=== PATIENT | female | born 1985 | race Caucasian/White ===

== ENCOUNTER 2016-07-29 17:42 | Emergency (ER) | payer OTHER ==
[~2016-07-29] VITALS: Ht 165.1 cm; Wt 95.5 kg
[2016-07-29 17:43] VITALS: BP 140/90; PULSE 98; RESP 14; TEMP 98.4; O2SAT 99
[2016-07-29] MEDS ORDERED: IBUP800T23 PO (18:15)
[2016-07-29] MEDS ORDERED: PERI0.126 SWISH-SPIT (18:15)
[2016-07-29] MEDS ORDERED: KETOROLAC TROMETHAMINE 60 MG/2 ML (IM) VIAL IM ONE (18:15)
[2016-07-29] MEDS ORDERED: PENI500T PO (18:15)
--- NOTE | 2016-07-29 18:15 | PD ---
HPI Chief Complaint: Oral / Dental Pain or Problem Time Seen by Provider: 18:12 Travel History International Travel<30 days: No Contact w/Intl Traveler<30days: No Traveled to known affect area: No History of Present Illness HPI 31-year-old female presents to the emergency department for evaluation of right mandibular second molar pain. Patient states that it has been chipped and broken for a long time. It began hurting her approximately 4 days ago. Pain has worsened. She states the, swollen around the base of it. Denies any fever or chills. No new trauma. Pain is a 10 out of 10. Patient has no other symptoms to report. PFSH Past Medical History Anxiety: No Depression: No Diabetes: Yes (GESTATIONAL) Patient Takes Glucophage: No Diminished Hearing: No Hepatitis: Yes (HEP A TREATED 2010) Neurologic: No Psychiatric: No Reproductive: No Immunizations Current: No Tetanus Vaccination: < 5 Years Influenza Vaccination: No ?: Not Menopausal: No Past Surgical History Oral Surgery: Yes (WISDOM TEETH as a child) Tonsillectomy: Yes Other Surgery: Yes Social History Alcohol Use: Yes (OCC) Tobacco Use: No Substance Use: No Allergies-Medications (Allergen,Severity, Reaction): Coded Allergies: Tomato (Verified Allergy, Severe, Anaphylaxis, 05/06/15) Bee Sting (Verified Allergy, Mild, 05/06/15) Uncoded Allergies: THROAT LOZENGE (Adverse Reaction, Severe, VOMITING, 04/28/10) UNKNOWN THROAT LOZENGE S/P TONSILS OUT Reported Meds & Prescriptions Reported Meds & Active Scripts Active Tramadol (Tramadol HCl) 50 Mg Tab 50 Mg PO Q8H PRN Peridex Liq (Chlorhexidine Gluconate (Mouth) Liq) 0.12% Soln 15 Ml SWISH-SPIT BID Ibuprofen 800 Mg Tab 800 Mg PO Q8H PRN Penicillin V Potassium 500 Mg Tab 500 Mg PO Q6H 10 Days Review of Systems Except as stated in HPI: all other systems reviewed are Neg Physical Exam Narrative GENERAL: Well-nourished, well-developed female patient, in no acute distress SKIN: Focused skin assessment warm/dry. HEAD: Normocephalic. Without erythema or edema EYES: No scleral icterus. No injection or drainage. DENTAL: No loose teeth. Right mandibular second molar is decayed to the gingiva with gingival erythema and edema. No appreciable abscess. No malocclusion. NECK: Supple, trachea midline. No JVD or lymphadenopathy. CARDIOVASCULAR: Regular rate and rhythm without murmurs, gallops, or rubs. RESPIRATORY: Breath sounds equal bilaterally. No accessory muscle use. Data Data Last Documented VS Vital Signs Date Time Temp Pulse Resp B/P Pulse Ox O2 Delivery O2 Flow Rate FiO2 07/29/16 17:43 98.4 98 14 140/90 99 Orders Ketorolac Inj (Toradol Inj) (07/29/16 18:15) [facility] Medical Decision Making Medical Screen Exam Complete: Yes Emergency Medical Condition: Yes Medical Record Reviewed: Yes Differential Diagnosis Dental caries versus pulpitis versus gingivitis versus periodontal disease Narrative Course 31-year-old female presents to emergency room for evaluation of dental pain. Patient has a significantly decayed second mandibular molar on the right with gingival erythema and edema. There is no appreciable abscess. Patient was started on oral antibiotics and Peridex oral rinse. She is encouraged to follow -up with a dentist and return immediately with any acute worsening of symptoms. 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 Gingivitis Referrals: Dentist Primary Care Physician Patient Instructions: Dental Caries (DC), General Instructions Additional Instructions: It is important that you follow up with a dentist as soon as possible Follow-up with a primary care provider Return immediately with any acute worsening symptoms Med/Other Pt SpecificInfo: Prescription(s) given Scripts Tramadol 50 Mg Tab50 Mg PO Q8H PRN (PAIN GREATER THAN 6) #15 TAB Ref 0 Prov:Heidy Curry DO 07/29/16 Chlorhexidine Gluconate (Mouth) Liq (Peridex Liq)0.12% Soln15 Ml SWISH-SPIT BID #473 ML Ref 0 Prov:Clara Frias 07/29/16 Ibuprofen 800 Mg [id number] Mg PO Q8H PRN (Pain/Inflammation) #30 TAB Ref 0 Prov:Clara Frias 07/29/16 Penicillin V Potassium 500 Mg [id number] Mg PO Q6H 10 Days Ref 0 Prov:Clara Frias 07/29/16 Disposition: 01 DISCHARGE HOME Condition: Stable Clara Frias July 29, 2016 18:15
[2016-07-29] MEDS ORDERED: TRAM50TA PO (18:16)
== END 2016-07-29 18:44 | disposition home or self-care (01) ==
LOC: NEPK 17:42
DX: K02.9 Dental caries, unspecified (principal); K05.10 Chronic gingivitis, plaque induced
CPT/HCPCS: 96372; 99282; J1885